=== PATIENT | female | born 1955 | race Caucasian/White ===

== ENCOUNTER 2022-07-16 11:28 | Emergency (ER) | payer OTHER ==
[~2022-07-16] VITALS: Ht 157.5 cm; Wt 56.2 kg
[~2022-07-16 11:28] MED LIST: CARAFATE1 G; NEXIUM2.5 MG; PEPCID20 MG
[2022-07-16] MEDS ORDERED: COZAAR50 MG PO (13:11)
[2022-07-16] MEDS ORDERED: SYNTHROID100 MCG PO (13:12)
== END 2022-07-16 14:10 | disposition home or self-care (01) ==
LOC: ER 11:28
DX: J03.90 Acute tonsillitis, unspecified (principal)

== ENCOUNTER → 2023-07-18 | Emergency (ER) | payer OTHER ==
[~2023-07-18] VITALS: Ht 157.5 cm; Wt 56.2 kg
[~2023-07-18] MED LIST changes: +COZAAR50 MG PO; +SYNTHROID100 MCG PO
[2023-07-18 19:55] LABS: HEMATOCRIT 37.6 % (36.0-45.00); HEMOGLOBIN 13.1 g/dL (12.0-15.00); MEAN CORPUSCULAR HEMOGLOBIN 32.8 pg (27.00-32.0); MEAN CORPUSCULAR HGB CONC 34.9 g/dl (32.0-36.0); PLATELET COUNT 259 K/uL (150-450); RED CELL DISTRIBUTION WIDTH 13.1 % (11.5-14.5)
== END | disposition left against medical advice (07) ==
LOC: ER 17:06
PROVIDERS: Nurse Practitioner Family
DX: J06.9 Acute upper respiratory infection, unspecified (principal); E03.9 Hypothyroidism, unspecified; I10 Essential (primary) hypertension; Z96.698 Presence of other orthopedic joint implants; Z20.822 Contact with and (suspected) exposure to COVID-19; Z88.8 Allergy status to other drugs, medicaments and biological substances
CPT/HCPCS: 36415; 96372; 99284; J1885